=== PATIENT | female | born 1985 | race Caucasian/White ===

== ENCOUNTER 2017-08-12 18:48 | Emergency (ER) | payer SELFPAY ==
[2017-08-12 18:58] VITALS: BP 142/94; PULSE 104; RESP 16; TEMP 98.7; O2SAT 100
--- NOTE | 2017-08-12 19:38 | ED PDOC ---
HPI: Female Pain Time Seen by Provider: 08/12/17 19:27 Chief Complaint (Nursing): Abdominal Pain History Per: Patient Onset/Duration Of Symptoms: Other (14) Severity: Mild Pain Scale Rating Of: 4 Quality Of Discomfort: Burning Associated Symptoms: Urinary Symptoms. denies: Fever, Nausea, Vomiting, Diarrhea Additional Complaint(s): Dysuria and frequency x 2weeks. No fever or back pain. No NVD. S/p vaginal delivery 3 months ago, Past Medical History Vital Signs: Last Vital Signs Temp 98.7 F 08/12/17 18:54 Pulse 104 H 08/12/17 18:54 Resp 16 08/12/17 18:54 BP 142/94 H 08/12/17 18:54 Pulse Ox 100 08/12/17 18:54 - Medical History PMH: No Chronic Diseases - Family History Family History: States: Unknown Family Hx - Home Medications Home Medications: Ambulatory Orders Medication Instructions Recorded Amoxicillin [Amoxil 500 mg Cap] 500 mg PO TID #30 cap 08/12/17 - Allergies Allergies/Adverse Reactions: Allergies Allergy/AdvReac Type Severity Reaction Status Date / Time No Known Allergies Allergy Verified 08/12/17 18:54 Review of Systems Constitutional: Negative for: Fever Gastrointestinal: Positive for: Abdominal Pain. Negative for: Nausea, Vomiting , Diarrhea Genitourinary Female: Positive for: Dysuria, Frequency Musculoskeletal: Negative for: Back Pain Physical Exam - Physical Exam Appears: Positive for: Non-toxic, No Acute Distress Skin: Positive for: Normal Color, Warm, DRY Gastrointestinal/Abdominal: Positive for: Bowel Sounds, Soft, Tenderness ( Suprapubic) Back: Negative for: L CVA Tenderness, R CVA Tenderness - ECG O2 Sat by Pulse Oximetry: 100 Disposition - Clinical Impression Clinical Impression: UTI (urinary tract infection) - Patient ED Disposition Is Patient to be Admitted: No Counseled Patient/Family Regarding: Studies Performed, Diagnosis, Need For Followup, Rx Given - Disposition Referrals: [facility] [Outside] Disposition: Routine/Home Disposition Time: 19:38 Condition: FAIR Prescriptions: Amoxicillin [Amoxil 500 mg Cap] 500 mg PO TID #30 cap Instructions: Urinary Tract Infection in Women (ED)
== END 2017-08-13 00:09 | disposition home or self-care (01) ==
LOC: H.ER 18:48
DX: N39.0 Urinary tract infection, site not specified (principal)